=== PATIENT | male | born 1995 | race Caucasian/White ===

== ENCOUNTER 2017-11-22 01:49 | Inpatient (IN) | payer OTHER ==
[~2017-11-22] VITALS: Ht 175.3 cm; Wt 84.1 kg
[2017-11-22 03:00] VITALS: BP 160/93
--- NOTE | 2017-11-22 03:00 | NUR ---
[facility] INTAKE TECHNICIAN NOTE PT IS A DIRECT ADMIT FROM [facility]. RECEIVED REPORT FROM KIN ALEXANDRA AT [place]. PT ARRIVED 0300 VIA GURNEY ACCOMPANIED BY MOTHER SERGIO AND EMT PERSONNEL IN STABLE CONDITION. PT IS A/O X4, AFEBRILE. RESPIRATIONS ARE EVEN AND UNLABORED, NOT IN ANY ACUTE DISTRESS NOTED. CURRENTLY ON RA, SATURATING 97%. PUPILS ARE REACTIVE TO LIGHT. BILATERAL HAND BOOM STICK WORKER ARE STRONG AND EQUAL. ABDOMEN IS SOFT AND NONDISTENDED. DENIES ANY BLADDER DISCOMFORT. PT IS AMBULATORY AND ABLE TO WALK FROM [place] TO BED. IV ACCESS TO LAC 20G, NO INFILTRATION NOTED. DRESSING KEPT CLEAN AND DRY. SAFETY MEASURES ARE IN PLACE. BED IS IN ITS LOW AND LOCKED POSITION. INSTRUCTED PT TO USE CALL LIGHT WHEN ASSISTANCE IS NEEDED, CALL LIGHT IS LEFT WITHIN REACH. DR. ALCALA MADE AWARE OF ADMISSION AND STATED HE WILL CARRY OUT ORDERS.
[2017-11-22] MEDS ORDERED: LORAZEPAM INJ 2 MG/ML VIAL IV PRN ×2 (05:00→12:00)
[2017-11-22] MEDS ORDERED: Z GUARD REMEDY 2 OZ OINT TP PRN (05:00)
[2017-11-22] MEDS ORDERED: ONDANSETRON HCL/PF 4 MG/2 ML VIAL IVP PRN (05:00)
[2017-11-22] MEDS ORDERED: MAGNESIUM HYDROXIDE 30 ML UDC PO PRN (05:00)
[2017-11-22] MEDS ORDERED: ACETAMINOPHEN 325 MG TABLET PO PRN ×2 (05:00→12:00)
[2017-11-22] MEDS ORDERED: Folic acid 1 MG in IV D5W 50 ML IV SCH ×2 (05:00→09:00)
[2017-11-22] MEDS ORDERED: ZOLPIDEM TARTRATE 5 MG TABLET PO PRN (05:00)
[2017-11-22] MEDS ORDERED: MAG HYDROX/AL HYDROX/SIMETH 30 ML UDC PO PRN (05:00)
[2017-11-22] MEDS ORDERED: Thiamine 100 MG in IV D5W 50 ML IV SCH (05:00)
[2017-11-22] MEDS: IV 1/2NS 1000 ML 1,000 ML IV PRN ×2 (05:04→23:06)
--- NOTE | 2017-11-22 05:30 | NUR ---
DRAIN TECHNICIAN NOTES CALLED [facility] RE: THIAMINE AND FOLIC ACID IV BAGS. PER PHARMACY, "PHARMACIST IS THE ONE THAT WILL MIX THE MEDICATIONS AND THEY HAVE A FOUR HOUR WINDOW." CHARGE NURSE MADE AWARE. WILL ENDORSE TO NEXT SHIFT.
--- NOTE | 2017-11-22 06:45 | NUR ---
INDUSTRIAL GREEN SYSTEMS DESIGNER CLOSING NOTES NEEDS MET AND ANTICIPATED. AWAKE AND RESPONSIVE. RESPIRATIONS ARE EVEN AND UNLABORED, NOT IN ANY ACUTE DISTRESS NOTED. NO C/O SOB, N/V. IV ACCESS INTACT, NO INFILTRATION NOTED. DRESSING KEPT CLEAN AND DRY. SAFETY MEASURES ARE IN PLACE. BED IS IN ITS LOW AND LOCKED POSITION. REMINDED PT TO USE CALL LIGHT WHEN ASSISTANCE IS NEEDED, CALL LIGHT IS LEFT WITHIN REACH. WILL ENDORSE TO NEXT SHIFT FOR CONTINUITY OF CARE.
[2017-11-22 07:11] LABS: BILIRUBIN,TOTAL 1.8 mg/dL (0.2-1.0); CALCIUM, SERUM 9.3 mg/dL (8.5-10.1); CREATININE 0.8 mg/dL (0.6-1.3); PHOSPHORUS 4.2 mg/dL (2.5-4.9); POTASSIUM 3.2 mmol/L (3.5-5.1); TOTAL PROTEIN, SERUM 7.7 g/dL (6.4-8.2)
--- NOTE | 2017-11-22 07:30 | NUR ---
JAVA LEAD ENGINEER OPENING NOTE PATIENT IS ALERT AND ORIENTED x4. NO PAIN AT THIS TIME. NO SOB OR DISTRESS NOTED. CALL LIGHT WITHIN REACH. SAFETY MEASURES IMPLEMENTED. IV INTACT AND PATENT NO REDNESS OR SWELLING WITH IV FLUIDS RUNNING AT 150 ML/HR. TELE MONITOR-SR 90. LABS PENDING THIS MORNING. NO NAUSEA OR VOMITING NOTED. ABLE TO COMMUNICATE NEEDS. WILL CONTINUE TO MONITOR THROUGHOUT SHIFT
[2017-11-22 07:53] LABS: BASOPHILS # (AUTO) 0.1 /CMM (0.0-0.2); BASOPHILS % (AUTO) 0.7 % (0.0-2.0); EOSINOPHILS % (AUTO) 0.2 % (0.0-6.0); HEMATOCRIT 45 % (39-51); HEMOGLOBIN 15.3 g/dL (13.5-17.5); LYMPHOCYTES # (AUTO) 1.8 /CMM (0.8-4.8); LYMPHOCYTES % (AUTO) 14.7 % (20.0-44.0); MEAN CORPUSCULAR HGB CONC 34 g/dl (31.0-36.0); MEAN CORPUSCULAR VOLUME 89 fL (80-96); MONOCYTES # (AUTO) 1.2 /CMM (0.1-1.30); MONOCYTES % (AUTO) 10.1 % (2.0-12.0); NEUTROPHILS # (AUTO) 9.1 /CMM (1.8-8.9); NEUTROPHILS % (AUTO) 74.3 % (43.0-81.0); PLATELET COUNT (AUTO) 289 /CMM (150-450); RDW COEFFICIENT OF VARIATION 13.4 (11.5-15.0); RED BLOOD CELL COUNT(AUTO) 5.06 MIL/uL (4.5-6.0); WHITE BLOOD COUNT (AUTO) 12.2 K/uL (4.3-11.0)
[2017-11-22 08:00] VITALS: BP 160/98
[2017-11-22] MEDS: THIAMINE HCL 100 MG TABLET PO SCH (08:38)
[2017-11-22] MEDS: POTASSIUM CHLORIDE 20 MEQ TAB.PRT.SR PO SCH ×2 (10:40→11:57)
--- NOTE | 2017-11-22 11:10 | NUR ---
MS SANDERSON NOTE POTASSIUM-3.2 REPLACED WITH 40 MEQ. WILL CONTINUE TO REPLACE ELECTROLYTES Addendum: 11/22/17 at 1336 by GREGORY RICHMOND RN 20 MEQ
--- NOTE | 2017-11-22 11:41 | NUR ---
Social service consult requested by Dr. Maradiaga for alcohol abuse. Pt. is a 22 year old young man who was admitted to [facility] for dehydration and vomiting. SW met with pt. bedside. Pt. is alert and oriented x 4. Pt. lives at home with his mother and sister in a house located at [address] [place] [address] in [place]. [place] Pt's emergency contact is his mother Berenice . Pt. is unemployed. Pt. states he has been binge drinking for the past three years. Pt. stated he started to drink three years ago when he broke up with a girlfriend and lost a job he had tried hard to get. Pt. drinks a bottle of vodka per day. Pt. 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 Pt. stated this was his first time drinking hand tumbler machine operator helper. SW encouraged pt. to not drink that anymore and also encourage pt. to attend an alcohol treatment program. Pt. has been to AA in the past. Pt. has no history of attending an alcohol rehabilitation program and is currently not interested in going to one. Pt. is open to receiving referrals. Pt. denies drug use. Pt. smokes Marijuana daily and one pack of cigarettes that last two weeks. Pt. states he feels depressed at times due to unable to find employment. Pt. states he also gets anxious when he is running out of alcohol and wants to get more. Pt. states he does little jobs here and there with his dad and gets money to pay for his alcohol. Pt. denies suicidal/homicidal ideations and visual/auditory hallucinations at this time. Pt. is pending a [facility]. consult at this time. No other social service needs are required at this time. SW is available, if needed. SW to give pt. referrals to alcohol treatment programs prior to discharge.
[2017-11-22 12:20] LABS: BAND % (MANUAL) 3 % (0.0-5.0); LYMPHOCYTES % (MANUAL) 18 % (16-48); MONOCYTES % (MANUAL) 5 % (0-11.0); NEUTROPHILS % (MANUAL) 74 (42-76)
[2017-11-22] MEDS: PANTOPRAZOLE 40 MG TABLET.DR PO SCH ×2 (12:34→21:35)
[2017-11-22 16:00] VITALS: BP 142/99
[2017-11-22 17:48] LABS: APPEARANCE,URINE CLEAR (CLEAR); BILIRUBIN,URINE NEGATIVE (NEGATIVE); BLOOD, URINE TRACE-INTA Ery/uL (NEGATIVE); COLOR,URINE YELLOW (YELLOW); KETONES,URINE TRACE (NEGATIVE); LEUKOCYTE ESTERASE ,URINE NEGATIVE (NEGATIVE); NITRITE, URINE NEGATIVE (NEGATIVE); PH,URINE 7.5 (5.0-8.0); PROTEIN,URINE NEGATIVE (NEGATIVE); UGLUCOSE NEGATIVE (NEGATIVE); UROBILINOGEN,URINE 0.2 EU/dL (0.2)
--- NOTE | 2017-11-22 18:28 | NUR ---
MS RN CLOSING NOTE PATIENT IS ALERT AND ORIENTED x4. NO PAIN AT THIS TIME. NO SOB OR DISTRESS NOTED. CALL LIGHT WITHIN REACH AT ALL TIMES. SAFETY MEASURES IMPLEMENTED. ALL DUE MEDICATIONS GIVEN ORDERED. ALL NURSING CARE NEEDS ATTENDED. ABLE TO COMMUNICATE NEEDS. IV INTACT AND PATENT NO REDNESS OR SWELLING NOTED. WILL ENDORSE TO PRECINCT CAPTAIN NURSE FOR HUGO
[2017-11-22 19:12] LABS: BACTERIA,URINE None seen /HPF (None Seen); SQUAMOUS EPITHELIAL CELL,UR Few /HPF (None Seen)
[2017-11-22 19:14] LABS: RBC,URINE 0-2 /HPF (0-2); WBC,URINE 0-2 /HPF (0-3)
--- NOTE | 2017-11-22 19:50 | NUR ---
MSRN FULLY AWAKE, FAMILY AT BEDSIDE. NO DISCOMFORTS MADE, STATED ALWAYS FEELS FULL ON HIS STOMACH. ABLE TO TOLERATE CLEAR LIQUIDS, NO NAUSEA OR VOMITTING. REMINDED TO CALL STAFF FOR ANY FURTHER DISCOMFORTS AND NEEDS. SAFETY PRECAUTIONS EMPHASIZED, WELL UNDERSTOOD. CONTINUED.
[2017-11-22 20:00] VITALS: BP 154/82
--- NOTE | 2017-11-22 23:20 | NUR ---
MSRTisha MOLINAMIGNON INEFFECTIVE, UNABLE TO SLEEP. SEEN WITH TREMORS ON HIS HANDS WHILE DRINKING , ATIVAN 1MG IVP ADMINISTERED ORDERED. WILL REASSESS IN FEW MINS. PRESENT IVF INFUSING AT 150CC/HR. CLOSELY WATCHED. REMINDED TO CALL STAFF FOR ANY FURTHER DISCOMFORTS AND OTHER NEEDS.
--- NOTE | 2017-11-23 02:59 | NUR ---
MSRN SLEEPING FOR NOW, PROVIDED QUIET ENVI. PRESENT IVF INFUSING WELL VIA LEFT AC AT 150CC/HR. URINAL WITHIN REACH.
[2017-11-23] MEDS: IV 1/2NS 1000 ML 1,000 ML IV PRN (06:01)
[2017-11-23 07:00] LABS: BASOPHILS # (AUTO) 0.1 /CMM (0.0-0.2); BASOPHILS % (AUTO) 0.8 % (0.0-2.0); EOSINOPHILS % (AUTO) 0.7 % (0.0-6.0); HEMATOCRIT 42 % (39-51); HEMOGLOBIN 14.3 g/dL (13.5-17.5); LYMPHOCYTES # (AUTO) 2.4 /CMM (0.8-4.8); LYMPHOCYTES % (AUTO) 29.2 % (20.0-44.0); MEAN CORPUSCULAR HGB CONC 34 g/dl (31.0-36.0); MEAN CORPUSCULAR VOLUME 90 fL (80-96); MONOCYTES # (AUTO) 0.9 /CMM (0.1-1.30); MONOCYTES % (AUTO) 11.3 % (2.0-12.0); NEUTROPHILS # (AUTO) 4.8 /CMM (1.8-8.9); PLATELET COUNT (AUTO) 245 /CMM (150-450); RDW COEFFICIENT OF VARIATION 13.9 (11.5-15.0); RED BLOOD CELL COUNT(AUTO) 4.67 MIL/uL (4.5-6.0); WHITE BLOOD COUNT (AUTO) 8.2 K/uL (4.3-11.0)
--- NOTE | 2017-11-23 07:03 | NUR ---
MSRN FULLY AWAKE, NO DISCOMFORTS MADE. ABD PAIN TOLERABLE. PRESENT IVF INFUSING WELL.
[2017-11-23 07:39] LABS: ALBUMIN 3.6 g/dL (3.4-5.0); BILIRUBIN,TOTAL 1.8 mg/dL (0.2-1.0); CALCIUM, SERUM 8.9 mg/dL (8.5-10.1); CREATININE 0.7 mg/dL (0.6-1.3); MAGNESIUM 2.7 mg/dL (1.8-2.4); PHOSPHORUS 3.4 mg/dL (2.5-4.9); POTASSIUM 3.5 mmol/L (3.5-5.1); TOTAL PROTEIN, SERUM 7.1 g/dL (6.4-8.2)
[2017-11-23 08:00] VITALS: BP 168/99
--- NOTE | 2017-11-23 08:00 | NUR ---
MS RN OPENING NOTES Patient was seen sitting upright in bed, AAOx4, breathing comfortably on RA, no signs of acute distress. Left AC IV is running 1/2 NS at 150 ml/hr. Patient's only complaint is 7/10 upper abdominal pain - bowel sounds active in all quads, soft and tender in bilateral upper quads, nontender in bilateral lower quads. Patient requests prn pain med - will administered as ordered and reassess. Bed is in low/locked position, two side rails up, call rice within reach. Will continue to monitor.
[2017-11-23] MEDS: PANTOPRAZOLE 40 MG TABLET.DR PO SCH (08:08)
[2017-11-23] MEDS: HYDROCODONE/APAP 5/325MG 1 EACH TABLET PO PRN ×2 (08:09→14:41)
[2017-11-23] MEDS: THIAMINE HCL 100 MG TABLET PO SCH (08:09)
[2017-11-23] MEDS ORDERED: FOLIC ACID 1 MG TABLET PO SCH (09:00)
--- NOTE | 2017-11-23 14:30 | NUR ---
MS RN NOTE Patient was evaluated by Psychiatrist, Dr. Maria. Patient is clear for discharge.
--- NOTE | 2017-11-23 15:54 | NUR ---
SHIMON met with pt. bedside earlier today and encouraged him to go to an alcohol treatment program. SHIMON gave pt. the following referrals: [facility] ; [facility] [place] and [facility] .
[2017-11-23 16:00] VITALS: BP 153/96
--- NOTE | 2017-11-23 18:52 | NUR ---
MS DIRECTOR BUSINESS NOTE Patient was discharged home in stable condition, accompanied by his father. Patient was AAOx4, breathing comfortably on RA, no signs of acute distress, vitals WNL. Discharge orders and education were provided to patient, as well as new order for Protonix; patient verbalized understanding and signed discharge forms. Patient Belongings form signed by patient. Peripheral IV in left AC was removed just before discharge.
== END 2017-11-23 18:52 | disposition home or self-care (01) | DRG 812 ==
LOC: TELE 02:59 → MED 11:19
PROVIDERS: ADMIT Internal Medicine; ATTEND Internal Medicine
DX: T49.0X1A Poisoning by local antifungal, anti-infective and anti-inflammatory drugs, accidental (unintentional), initial encounter (principal); M41.9 Scoliosis, unspecified; F10.239 Alcohol dependence with withdrawal, unspecified; F32.9 Major depressive disorder, single episode, unspecified; E86.0 Dehydration; F41.9 Anxiety disorder, unspecified; E87.6 Hypokalemia; F17.210 Nicotine dependence, cigarettes, uncomplicated; E66.3 Overweight; Z68.27 Body mass index [BMI] 27.0-27.9, adult; G25.2 Other specified forms of tremor; Y92.89 Other specified places as the place of occurrence of the external cause; F12.10 Cannabis abuse, uncomplicated; Z91.5 Personal history of self-harm; F10.280 Alcohol dependence with alcohol-induced anxiety disorder; Y90.0 Blood alcohol level of less than 20 mg/100 ml
CPT/HCPCS: 36415; 80053-TC; 80061-TC; 81000-TC; 82140-TC; 83690-TC; 83735-TC; 84100-TC; 85025-TC; 87081-TC; 87086-TC; G0480; J2060; J3411; J3490; J7060; Z7610

== ENCOUNTER 2019-09-01 21:17 | Inpatient (IN) | payer OTHER ==
[~2019-09-01] VITALS: Ht 175.3 cm; Wt 94.9 kg
--- NOTE | 2019-09-01 21:30 | NUR ---
PT SURAJ C/O ALCOHOL WITHDRAWAL. PT STATES HE "DRANK ABOUT 1 BOTTLE OF ALCOHOL PER DAY X4 DAYS, LAST DRINK X1 DAY AGO" PT AAOX4. RESPIRATIONS EVEN AND UNLABORED. SKIN WARM AND INTACT. NO ACUTE DISTRESS NOTED AT THIS TIME. WILL CONTINUE TO MONITOR
[2019-09-01] MEDS ORDERED: CHLORDIAZEPOXIDE HCL 25 MG CAPSULE PO ONE (22:00)
[2019-09-01] MEDS ORDERED: IV NS 0.9% 1,000 ML BAG IV ONE (22:00)
[2019-09-01] MEDS ORDERED: CHLORDIAZEPOXIDE HCL 25 MG CAPSULE ONE (22:02)
--- NOTE | 2019-09-01 22:15 | NUR ---
IV STARTED AND BLOOD DRAW DONE. SAMPLES SENT TO LAB. PT IS BEING MONITORED AND IS ON 2L O2 VIA NC PRECAUTION. PT'S O2 SAT IS 92% ON RA. PT IS DIAPHORETIC AND CALM. RESP ARE EVEN AND UNLABORED.
[2019-09-01 22:22] LABS: BASOPHILS # (AUTO) 0.1 /CMM (0.0-0.2); BASOPHILS % (AUTO) 0.6 % (0.0-2.0); EOSINOPHILS % (AUTO) 0.1 % (0.0-6.0); HEMATOCRIT 45 % (39-51); HEMOGLOBIN 15.1 g/dL (13.5-17.5); LYMPHOCYTES # (AUTO) 1.6 /CMM (0.8-4.8); LYMPHOCYTES % (AUTO) 12.1 % (20.0-44.0); MEAN CORPUSCULAR HGB CONC 34 g/dl (31.0-36.0); MEAN CORPUSCULAR VOLUME 88 fL (80-96); MONOCYTES # (AUTO) 1.5 /CMM (0.1-1.30); MONOCYTES % (AUTO) 11.7 % (2.0-12.0); NEUTROPHILS # (AUTO) 9.7 /CMM (1.8-8.9); NEUTROPHILS % (AUTO) 75.5 % (43.0-81.0); PLATELET COUNT (AUTO) 341 /CMM (150-450); RED BLOOD CELL COUNT(AUTO) 5.08 MIL/uL (4.5-6.0); WHITE BLOOD COUNT (AUTO) 12.8 K/uL (4.3-11.0)
[2019-09-01 22:40] LABS: ALANINE AMINOTRANSFERASE 31 U/L (12-78); ALCOHOL, BLOOD < 3 mg/dL (0-0); ALKALINE PHOSPHATASE 101 U/L (46-116); ASPARTATE AMINOTRANSFERASE 44 U/L (15-37); BILIRUBIN,DIRECT 0.2 mg/dL (0.0-0.2); CALCIUM, SERUM 9.7 mg/dL (8.5-10.1); CARBON DIOXIDE 32 mmol/L (21-32); CHLORIDE 92 mmol/L (98-107); CREATININE 1.4 mg/dL (0.6-1.3); GLUCOSE 143 mg/dL (74-106); SODIUM SERUM 136 mmol/L (136-145); TOTAL PROTEIN, SERUM 7.7 g/dL (6.4-8.2); UREA NITROGEN, BLOOD 12 mg/dL (7-18)
[2019-09-01 22:49] LABS: POTASSIUM 2.4 mmol/L (3.5-5.1)
[2019-09-01] MEDS ORDERED: POTASSIUM CL. PREMIX PERIPHER. 50 ML ONE (22:59)
[2019-09-01] MEDS ORDERED: POTASSIUM CHLORIDE 10 MEQ/50 ML PREMIXED IVPB FOR PERIPHERAL LINE IV ONE (23:00)
--- NOTE | 2019-09-01 23:10 | NUR ---
FIRST BAG OF KCL 10MEQ HUNG AT THIS TIME. LAC 18G, IV END TIME 0010
[2019-09-01 23:27] LABS: APPEARANCE,URINE Clear (CLEAR); BILIRUBIN,URINE SMALL (NEGATIVE); BLOOD, URINE Negative Ery/uL (NEGATIVE); COLOR,URINE Dark (YELLOW); KETONES,URINE 15 (NEGATIVE); LEUKOCYTE ESTERASE ,URINE Negative (NEGATIVE); NITRITE, URINE Negative (NEGATIVE); PROTEIN,URINE 100 mg/dl (NEGATIVE); UGLUCOSE Negative (NEGATIVE)
--- NOTE | 2019-09-01 23:30 | NUR ---
CALLED NURSING SUP FOR TELE BED
[2019-09-01 23:49] LABS: BACTERIA,URINE None seen /HPF (None Seen); RBC,URINE 0-2 /HPF (0-2); SQUAMOUS EPITHELIAL CELL,UR Rare /HPF (None Seen)
--- NOTE | 2019-09-01 23:54 | NUR ---
CALLED [facility], DR FORTE AWARE AT [phone]
--- NOTE | 2019-09-01 23:57 | NUR ---
BED ASSIGNMENT 328-1
--- NOTE | 2019-09-02 00:01 | NUR ---
REPORT GIVEN TO OLLIE SANDERSON FOR HUGO
--- NOTE | 2019-09-02 00:22 | NUR ---
PT TRANSFERRED PER [facility]S [facility]OCOL
[2019-09-02 00:30] VITALS: BP 148/89
[2019-09-02] MEDS ORDERED: ONDANSETRON HCL/PF 4 MG/2 ML VIAL IVP PRN (00:30)
[2019-09-02] MEDS ORDERED: LORAZEPAM INJ 2 MG/ML VIAL IV PRN (00:30)
[2019-09-02] MEDS ORDERED: MORPHINE SULFATE INJ 2 MG/ML DISP.SYRIN IV PRN (00:30)
[2019-09-02 00:36] VITALS: BP 140/89
--- NOTE | 2019-09-02 01:00 | NUR ---
RN NOTES ADMITTED PATIENT FROM ED DUE TO ETOH WITHDRAWAL, ALCOHOL BINGING, WITH CC OF N/V, HYPERVENTILATING, ALERT AND ORIENTED X4, 100% SPO2 ON ROOM AIR, NO COMPLAIN OF ABDOMINAL DISCOMFORT, NO VOMITING, ABLE TO TOLERATE FLUIDS, REPORTED NUMBNESS TO BLE, AND FINGERS, DENIES DEPRESSION AND SUICIDAL IDEATION, ADMITS TO SMOKING MARIJUANA X10 PER DAY, POTASSIUM LEVEL 2.4, REPLACED WITH KCL 40 MEQ IVPB, LABS IN AM
[2019-09-02] MEDS: POTASSIUM CHLORIDE 10 MEQ/50 ML PREMIXED IVPB FOR PERIPHERAL LINE IV SCH ×3 (01:37→03:59)
[2019-09-02 04:58] VITALS: BP 146/88
[2019-09-02 07:00] VITALS: BP 157/87
[2019-09-02 07:10] LABS: BASOPHILS # (AUTO) 0.1 /CMM (0.0-0.2); BASOPHILS % (AUTO) 0.5 % (0.0-2.0); EOSINOPHILS % (AUTO) 0.2 % (0.0-6.0); HEMATOCRIT 42 % (39-51); HEMOGLOBIN 14.3 g/dL (13.5-17.5); LYMPHOCYTES # (AUTO) 3.6 /CMM (0.8-4.8); LYMPHOCYTES % (AUTO) 27.1 % (20.0-44.0); MEAN CORPUSCULAR HGB CONC 34 g/dl (31.0-36.0); MEAN CORPUSCULAR VOLUME 88 fL (80-96); MONOCYTES # (AUTO) 1.5 /CMM (0.1-1.30); MONOCYTES % (AUTO) 11.5 % (2.0-12.0); NEUTROPHILS % (AUTO) 60.7 % (43.0-81.0); PLATELET COUNT (AUTO) 284 /CMM (150-450); RED BLOOD CELL COUNT(AUTO) 4.81 MIL/uL (4.5-6.0); WHITE BLOOD COUNT (AUTO) 13.2 K/uL (4.3-11.0)
[2019-09-02] MEDS: PANTOPRAZOLE 40 MG TABLET.DR PO SCH (07:37)
--- NOTE | 2019-09-02 07:40 | NUR ---
PLASTIC PRESS OPERATOR NOTES PATIENT AWAKE IN BED, FAMILY AT BEDSIDE. PATIENT ON LAUNDRY TECH SR 71, NO RESPIRATORY DISTRESS, NO C/O PAIN AT THIS TIME. PATIENT'S IV SITE ON THE LAC #18G, INTACT AND PATENT. SKIN WARM TO TOUCH. PATIENT'S NEEDS ATTENDED, BED ON LOWEST LOCKED POSITION, CALL LIGHT WITHIN REACH. WILL CONTINUE TO MONITOR.
[2019-09-02 07:45] LABS: ALBUMIN 3.5 g/dL (3.4-5.0); BILIRUBIN,TOTAL 1.3 mg/dL (0.2-1.0); CALCIUM, SERUM 8.9 mg/dL (8.5-10.1); CREATININE 0.9 mg/dL (0.6-1.3); MAGNESIUM 1.5 mg/dL (1.8-2.4); TOTAL PROTEIN, SERUM 6.9 g/dL (6.4-8.2)
[2019-09-02 07:46] LABS: PHOSPHORUS 2.4 mg/dL (2.5-4.9)
[2019-09-02 07:48] LABS: POTASSIUM 2.7 mmol/L (3.5-5.1)
--- NOTE | 2019-09-02 07:53 | NUR ---
PRESSER ALL AROUND NOTES CRITICAL LAB VALUE REPORTED, POTASSIUM 2.7. NOTIFIED MD, AWAITING FOR ORDERS. PATIENT IN NO ACUTE DISTRESS AT THIS TIME, WILL CONTINUE TO MONITOR.
[2019-09-02] MEDS ORDERED: GABA600T12 PO (08:19)
[2019-09-02] MEDS ORDERED: AMIT100T2 PO (08:19)
[2019-09-02] MEDS ORDERED: POTASSIUM CHLORIDE 20 MEQ TAB.PRT.SR PO ONE (09:00)
[2019-09-02] MEDS: MULTIVITAMINS,THERAGRAN 1 UDTAB TABLET PO SCH (09:22)
[2019-09-02] MEDS: Magnesium 1GM/D5W 100ML PREMIX 100 ML IV SCH ×4 (09:22→12:50)
[2019-09-02] MEDS: THIAMINE HCL 100 MG TABLET PO SCH (09:22)
[2019-09-02] MEDS: FOLIC ACID 1 MG TABLET PO SCH (09:22)
[2019-09-02] MEDS ORDERED: K PHOS NEUTRAL 250 MG TABLET PO ONE (11:00)
[2019-09-02 16:00] VITALS: BP 172/100
--- NOTE | 2019-09-02 18:52 | NUR ---
M/S RN NOTES PATIENT AWAKE IN BED, FAMILY AT BEDSIDE. PATIENT IN NO RESPIRATORY DISTRESS, NO C/O PAIN AT THIS TIME. PATIENT'S IV ACCESS SITE INTACT AND PATENT. PATIENT'S NEEDS ATTENDED, BED ON LOWEST LOCKED POSITION, CALL LIGHT WITHIN REACH. WILL ENDORSE TO ONCOMING NURSE.
--- NOTE | 2019-09-02 19:49 | NUR ---
MS/RN OPENING NOTES RECEIVED PATIENT IN BEDM AWAKE, ALERT X3, ABLE TO VERBALIZE NEEDS, REPORTED MODERATE PAIN IN BACK, CALM AND COOPERATIVE, FAMILY AT BEDSIDE. OFFERED FLUIDS AND SOME SNACKS,IV ON LEFT AC HEPOCK PATENT. WILL MONITOR, BED LOCKED, CALL LIGHTS WITHIN REACH, WILL MONITOR.
[2019-09-02 20:00] VITALS: BP 135/92
[2019-09-02] MEDS: ACETAMINOPHEN 325 MG TABLET PO PRN (20:47)
--- NOTE | 2019-09-02 23:40 | NUR ---
MS/RN NOTES FAMILY CAME TO VISIT THE PATIENT , SAID WILL VISIT FOR A SHORT WHILE ONLY.
--- NOTE | 2019-09-03 06:32 | NUR ---
MS/RN CLOSING NOTES PATIENT ABLE TO SLEEP DURING THE NIGHT, PAIN MANAGED WITH TYLENOL, ABLE TO TOLERATE DIET, DO BEHAVIOF, WILLENDORSE TO AM RN FOR HUGO. BED LOCKED, CALL LIGHTS WITHIN REACH.
--- NOTE | 2019-09-03 07:22 | NUR ---
MS/RN NOTES ENDORSED TO AM RN FOR HGUO.
--- NOTE | 2019-09-03 07:27 | NUR ---
MS RN OPENING NOTES RECEIVED PT IN BED, AWAKE, A/O X4. PT TOLERATING RA WITH NO ACUTE RESPIRATORY DISTRESS NOTED. DURING ROUNDS PT REQUESTING FOR TYLENOL FOR MILD BACK PAIN. TYLENOML PRN TO GIVE. PT DENIES ANY CONCERNS OR QUESTIONS AT THIS TIME. PIV TO LAC G18, FLUSHED WITH NS, INTATC AND OPERATIONAL. PT KEPT COMFORTABLE IN BED. CALL LIGHT KEPT WITHIN REACH. WILL CONTINUE PLAN OF CARE.
[2019-09-03] MEDS: PANTOPRAZOLE 40 MG TABLET.DR PO SCH (07:36)
[2019-09-03] MEDS: ACETAMINOPHEN 325 MG TABLET PO PRN (07:36)
[2019-09-03] MEDS: THIAMINE HCL 100 MG TABLET PO SCH (08:04)
[2019-09-03] MEDS: FOLIC ACID 1 MG TABLET PO SCH (08:04)
[2019-09-03] MEDS: MULTIVITAMINS,THERAGRAN 1 UDTAB TABLET PO SCH (08:05)
[2019-09-03 08:34] LABS: CALCIUM, SERUM 8.9 mg/dL (8.5-10.1); CREATININE 0.8 mg/dL (0.6-1.3); PHOSPHORUS 4.3 mg/dL (2.5-4.9); POTASSIUM 3.1 mmol/L (3.5-5.1)
[2019-09-03] MEDS ORDERED: INFLUENZA VACCINE 2019-20 0.5 ML DISP.SYRIN IM ONE (09:30)
[2019-09-03] MEDS ORDERED: POTASSIUM CHLORIDE 20 MEQ TAB.PRT.SR PO ONE (09:30)
--- NOTE | 2019-09-03 10:51 | NUR ---
MS PERSONNEL COUNSELOR NOTES PT IN BED, AWAKE, A/O X4. PT TO BE DISCHARGE TO HOME. PT TOLERATING RA WITH NO ACUTE RESPIRATORY DISTRESS. PT DENIES PAIN OR ANY DISCOMFORT AT THE TIME OF DISCHARGE. PT REVIEWED AND SIGNED DISCHARGE INSTRUCTION AND INVENTORY LIST. ALL BELONGINGS WITH THE PT. PIV TO LAC G18, REMOVED AND APPLIED DRY DRESSING. ALL NEEDS AND CARE PROVIDED. PT HAPPY WITH THE CARE. FLU VACCINE GIVEN TO RIGHT DELTOID PER PT'S REQUEST. HOSPITALIST/NN AND CN/ESTELA AWARE OF DISCHARGE. PT LEFT THE UNIT AT 1045, ESCORTED BY ALEX TO THE LOBBY.
== END 2019-09-03 10:35 | disposition home or self-care (01) | DRG 775 ==
LOC: ER 21:24 → TELE 09-02 00:04 → MED 09-02 09:35
PROVIDERS: ADMIT Internal Medicine; ATTEND Nurse Practitioner Acute Care
DX: F10.239 Alcohol dependence with withdrawal, unspecified (principal); F10.229 Alcohol dependence with intoxication, unspecified; G92 Toxic encephalopathy; E83.42 Hypomagnesemia; M41.9 Scoliosis, unspecified; E87.6 Hypokalemia; Y90.0 Blood alcohol level of less than 20 mg/100 ml; Z98.1 Arthrodesis status; Z79.899 Other long term (current) drug therapy
CPT/HCPCS: 36415; 80048-TC; 80053-TC; 80076-TC; 80305; 81000-TC; 83690-TC; 83735-TC; 84100-TC; 85025-TC; 87081-TC; G0378; G0480; J3475; J3480; J7030; J7050; Q2036

== ENCOUNTER 2022-04-14 18:38 | Emergency (ER) | payer OTHER ==
[~2022-04-14 18:38] MED LIST: AMIT100T2 PO; GABA600T12 PO
--- NOTE | 2022-04-14 20:55 | NUR ---
CALLED FOR TRIAGE. NO ANSWER
== END 2022-04-14 21:05 | disposition left against medical advice (07) ==
LOC: ER 18:43
DX: Z53.21 Procedure and treatment not carried out due to patient leaving prior to being seen by health care provider (principal)